=== PATIENT | female | born 1990 | race Two or more races ===

== ENCOUNTER 2021-11-01 11:19 | Emergency (ER) | payer MEDICAID, OTHER ==
[~2021-11-01] VITALS: Ht 154.9 cm; Wt 70.3 kg
[2021-11-01 12:11] VITALS: BP 110/80
[2021-11-01] MEDS ORDERED: KETOROLAC TROMETH 60MG/2ML VIAL IM ONE (13:15)
== END 2021-11-01 13:58 | disposition home or self-care (01) ==
LOC: ER 11:19
DX: S80.11XA Contusion of right lower leg, initial encounter (principal); S81.851A Open bite, right lower leg, initial encounter; Z88.1 Allergy status to other antibiotic agents; W54.0XXA Bitten by dog, initial encounter; Y93.89 Activity, other specified; Y92.89 Other specified places as the place of occurrence of the external cause; Y99.8 Other external cause status
CPT/HCPCS: 81025; 93971; 96374; 99284; J1885